=== PATIENT | female | born 1970 ===

== ENCOUNTER 2017-04-11 23:33 | Inpatient (IN) | payer SELFPAY ==
[2017-04-12] MEDS ORDERED: Sodium Chloride 0.9% 1,000 ML IV STA (00:18)
--- NOTE | 2017-04-12 00:29 | ED PDOC ---
HPI: Abdomen Time Seen by Provider: 04/12/17 00:00 Chief Complaint (Nursing): Abdominal Pain Chief Complaint (Provider): Abdominal Pain History Per: Patient History/Exam Limitations: no limitations Onset/Duration Of Symptoms: Hrs (x3 hours) Current Symptoms Are (Timing): Constant Pain Scale Rating Of: 9 Location Of Pain/Discomfort: RUQ Quality Of Discomfort: Sharp, Stabbing, "Pain" Associated Symptoms: denies: Fever, Nausea, Vomiting, Diarrhea Exacerbating Factors: Deep Breaths Additional Complaint(s): Joelle Rodriguez is a 46 year old female with no past medical history who presents to the ED with a chief complaint of abdominal pain onset x3 hours. Denies any fever, vomiting, diarrhea, cough or shortness of breath. Rates the pain 9/10 and describes it as a constant sharp and stabbing sensation. States feels worse with deep breaths. Of note patient reports the pain radiates to the back. Past Medical History Reviewed: Historical Data, Nursing Documentation, Vital Signs Vital Signs: Last Vital Signs Temp 100.4 F H 04/12/17 05:04 Pulse 109 H 04/12/17 05:04 Resp 18 04/12/17 05:04 BP 134/79 04/12/17 05:04 Pulse Ox 100 04/12/17 06:37 - Medical History PMH: No Chronic Diseases - Surgical History Surgical History: No Surg Hx - Family History Family History: States: Unknown Family Hx - Social History Current smoker - smoking cessation education provided: No Ex-Smoker (has not smoked in the last 12 months): No Alcohol: None Drugs: Denies - Home Medications Home Medications: Ambulatory Orders Medication Instructions Recorded No Known Home Med 04/12/17 - Allergies Allergies/Adverse Reactions: Allergies Allergy/AdvReac Type Severity Reaction Status Date / Time No Known Allergies Allergy Unverified 04/11/17 23:54 Review of Systems ROS Statement: Except As Marked, All Systems Reviewed And Found Negative Constitutional: Negative for: Fever Respiratory: Negative for: Cough, Shortness of Breath Gastrointestinal: Positive for: Abdominal Pain (Pain radiates to the back). Negative for: Nausea, Vomiting, Diarrhea Physical Exam - Reviewed Nursing Documentation Reviewed: Yes Vital Signs Reviewed: Yes - Physical Exam Appears: Positive for: Well, Non-toxic, Uncomfortable Head Exam: Positive for: ATRAUMATIC, NORMAL INSPECTION, NORMOCEPHALIC Skin: Positive for: Normal Color, Warm, Dry Eye Exam: Positive for: Normal appearance, EOMI, PERRL ENT: Positive for: Normal ENT Inspection Neck: Positive for: Normal, Painless ROM, Supple Cardiovascular/Chest: Positive for: Regular Rate, Rhythm. Negative for: Murmur , Tachycardia Respiratory: Positive for: Normal Breath Sounds. Negative for: Wheezing, Respiratory Distress Gastrointestinal/Abdominal: Positive for: Tenderness (RUQ epigastric tenderness) Back: Positive for: Normal Inspection Rectal: Positive for: Deferred Extremity: Positive for: Normal ROM Lymphatic: Positive for: Deferred Neurologic/Psych: Positive for: Alert, Oriented - Laboratory Results Result Diagrams: 04/12/17 00:49 04/12/17 00:49 - ECG O2 Sat by Pulse Oximetry: 100 (RA) Pulse Ox Interpretation: Normal - Critical Care Total Time (In Min): 60 Medical Decision Making Medical Decision Makin: Initial Impression: 46 year old female with acute abdominal pain Initial Plan: * Labs * CT * Zofran * Torodal * Re-Eval Labs significant for marked derangement of lipase level and liver function tests. Clinical presentation and lab are consistent with acute biliary pancreatitis. Patient referred to family practice for further admission. Dr Saucedo aware of admission Diagnosis: Biliary pancreatitis. Condition is fair. 02:30: Spoke to Dr. Potts regarding patient. Dr. Potts is aware and will consult on the case. 0540: CT EXAM: CT Abdomen and Pelvis With Intravenous Contrast CLINICAL HISTORY: 46 years old, female; Pain; Abdominal pain; Localized; Right upper quadrant (ruq ); Additional info: Ruq pain TECHNIQUE: Axial computed tomography images of the abdomen and pelvis with intravenous contrast. This CT exam was performed using one or more of the following dose reduction techniques : automated exposure control, adjustment of the mA and/or kV according to patient size, and/ or use of iterative reconstruction technique. Coronal and sagittal reformatted images were created and reviewed. CONTRAST: 90 mL of [id number] administered intravenously. COMPARISON: US - ABDOMEN LIMITED 01/07/2017 3:36:48 PM FINDINGS: Lower thorax: Right basilar consolidation. The remainder of the lung bases are clear. ABDOMEN: Liver: The left lobe of the liver is atretic. Marked dilatation of the intrahepatic biliary ducts, primarily within the atrophic left lobe is identified. Common bile duct dilatation is also noted, measuring 13 mm in greatest dimension. No obstructing calculus is identified. Gallbladder: The gallbladder is decompressed, and contains innumerable calcified stones. Pancreas: Enhances homogeneously. No ductal dilation. No discrete mass. Spleen: No acute findings. Adrenals: No acute findings. Kidneys and ureters: No acute findings. No hydronephrosis or renal calculi. No discrete solid mass. PELVIS: Bladder: No acute findings. Reproductive: Nodular contour of the uterus, suggesting uterine fibroids. Appendix: The air filled appendix is of normal caliber ABDOMEN and PELVIS: Stomach and bowel: A fat containing left inguinal hernia is identified. Colonic diverticulosis is identified, without inflammation. No obstruction. No mucosal thickening. Peritoneum: No significant fluid collection. No free air. Lymph nodes: No pathologically enlarged lymph nodes. Vasculature: Unremarkable. Bones: No acute fracture. IMPRESSION: Interval development of intra-and extrahepatic biliary ductal dilatation, predominantly involving the atrophic left lobe of the liver. Cholelithiasis. Fibroid uterus. Fat-containing left lumbar hernia. Diverticulosis, without inflammation. Scribe Attestation: Documented by Zack Crespo acting as a scribe for Antwan Sierra MD. Provider Scribe Attestation: All medical record entries made by the Scribe were at my direction and personally dictated by me. I have reviewed the chart and agree that the record accurately reflects my personal performance of the history, physical exam, medical decision making, and the department course for this patient. I have also personally directed, reviewed, and agree with the discharge instructions and disposition. Disposition - Clinical Impression Clinical Impression: Gallstone pancreatitis - Patient ED Disposition Is Patient to be Admitted: Yes - Disposition Disposition Time: 02:00 Condition: GUARDED
[2017-04-12 00:53] LABS: BASO % 0.1 % (0.0-2.0); EOS % 0.1 % (0.0-4.0); HEMOGLOBIN 13.1 g/dL (12.0-16.0); LYMPH # 0.3 K/uL (1.0-4.3); LYMPH % 3.4 % (20.0-40.0); MEAN CORPUSCULAR HEMOGLOBIN 30.9 pg (27.0-31.0); MEAN CORPUSCULAR HGB CONC 33.2 g/dL (33.0-37.0); MEAN PLATELET VOLUME 9.4 fl (7.2-11.7); MONO # 0.3 K/uL (0.0-0.8); MONO % 3.1 % (0.0-10.0); NEUT # 8.5 K/uL (1.8-7.0); NEUT % 93.3 % (50.0-75.0); NRBC % 0.1 % (0.0-0.0); PLATELET COUNT 198 K/uL (130-400); RBC 4.26 Mil/uL (3.80-5.20); RED CELL DISTRIBUTION WIDTH 13.1 % (11.5-14.5); WHITE BLOOD COUNT 9.1 K/uL (4.8-10.8)
[2017-04-12 01:00] LABS: ALB/GLOB RATIO 1.3 (1.0-2.1); ALBUMIN 4.4 g/dL (3.5-5.0); ALT/SGPT 619 U/L (9-52); AST/SGOT 375 U/L (14-36); BLOOD UREA NITROGEN 13 mg/dl (7-17); CALCIUM 9.3 mg/dL (8.4-10.2); GFR AFRICAN-AMERICAN > 60; GFR NON-AFRICAN AMERICAN > 60; LIPASE 1959 U/L (23-300)
[2017-04-12] MEDS ORDERED: Lactated Ringer's 1,000 ML IV SCH ×6 (01:15→09:00)
[2017-04-12 02:33] LABS: BANDS 3 % (0-2); LYMPHOCYTE 5 % (20-50); MONOCYTE 1 % (0-10); NEUTROPHIL 89 % (42-75); PLATELET ESTIMATE NORMAL (NORMAL); REACTIVE LYMPHOCYTES 2 % (0-0); TOTAL CELLS COUNTED 100
[2017-04-12] MEDS ORDERED: Sodium Chloride 0.9% 50 ML IV ONE (02:35)
[2017-04-12] MEDS ORDERED: Iohexol 300 100 ML IJ ONE (02:35)
[2017-04-12 02:38] LABS: ANISOCYTOSIS SLIGHT; HYPOCHROMIC SLIGHT
[2017-04-12] MEDS ORDERED: Piperacillin/Tazobact 3.375 GM in Sodium Chloride 0.9% 100 ML IV STA (02:47)
--- NOTE | 2017-04-12 03:16 | CP.PCM.HP ---
History of Present Illness - History of Present Illness History of Present Illness: 46 yo F w PMHx of fatty liver disease and HLD is admitted for c/o intractable abdominal pain. Pt states the pain began 6-7 days prior to hospital presentation and describes it as sharp/stabbing, 10/10, localized to her epigastric and RUQ regions, but does occasionally radiates toward her back. She has vomited twice during the day and once since presenting to the ER, all moments being mostly water with some food particles, but without obvious bleeding. Pt has continued to tolerate PO food and beverage during the week- long period, however, it has decreased in total amount. Her most recent meal was at 7pm, during which she had only chicken soup. She denies any fever/chills , hemoptysis, diarrhea, constipation, dysuria, melena, or hematochezia. Pt states last BM was this morning and it was of normal size, color, and consistency. Otherwise, she also denies chest pain, palpitations, SOB, dyspnea, cough, or other myalgias. PMD: Dr John PMHx: patient states none; eCW denotes Fatty Liver Disease, HLD, and spontaneous in Sep PSHx: None NKDA Home Meds: None LATHE TENDER: , LMP March 24 SHx: etoh, cigarettes, and illicit drugs FHx: Unremarkable except for brother w HTN : Blayne Raines [phone] ED Course: -CBC -CMP -Lipase -BCx -Upreg: negative -UA -NS 1L Bolus x1 -LR 1L Bolus x2 -Morphine 4mg IVP ONCE -Toradol 10mg IV ONCE -Zosyn 3.375mg IV ONCE -Zofran 4mg IV ONCE -CXR -CT A/P w IV Contrast -EKG Present on Admission - Present on Admission Any Indicators Present on Admission: No History of DVT/PE: No History of Uncontrolled Diabetes: No Urinary Catheter: No Decubitus Ulcer Present: No Review of Systems - Review of Systems All systems: reviewed and no additional remarkable complaints except (see HPI) Past Patient History - Past Social History Alcohol: None Drugs: Denies - PSYCHIATRIC Hx Substance Use: No Meds Allergies/Adverse Reactions: Allergies Allergy/AdvReac Type Severity Reaction Status Date / Time No Known Allergies Allergy Unverified 04/11/17 23:54 Physical Exam - Constitutional Appears: Non-toxic, In Acute Distress (severe abd pain) - Head Exam Head Exam: ATRAUMATIC, NORMOCEPHALIC - Eye Exam Eye Exam: EOMI Pupil Exam: PERRL - ENT Exam ENT Exam: Mucous Membranes Dry - Neck Exam Neck exam: Positive for: Full Rom. Negative for: Tenderness - Respiratory Exam Respiratory Exam: NORMAL BREATHING PATTERN. absent: Rhonchi, Wheezes, Respiratory Distress - Cardiovascular Exam Cardiovascular Exam: REGULAR RHYTHM. absent: Bradycardia - GI/Abdominal Exam GI & Abdominal Exam: Soft, Tenderness (very TTP in epigastric and RUQ regions). absent: Distended, Firm, Rebound - Extremities Exam Extremities exam: Negative for: calf tenderness, pedal edema - Back Exam Back exam: NORMAL INSPECTION. absent: CVA tenderness (L), CVA tenderness (R) - Neurological Exam Neurological exam: Alert, CN II-XII Intact, Oriented x3 - Psychiatric Exam Psychiatric exam: Normal Affect, Normal Mood - Skin Skin Exam: Dry, Intact, Normal Color, Warm Results - Vital Signs Recent Vital Signs: Last Vital Signs Temp 100.7 F H 04/11/17 23:54 Pulse 103 H 04/11/17 23:54 Resp 18 04/11/17 23:54 BP 132/50 L 04/11/17 23:54 Pulse Ox 100 04/12/17 02:17 - Labs Result Diagrams: 04/12/17 00:49 04/12/17 00:49 Assessment & Plan - Assessment and Plan (Free Text) Plan: 46 yo F w PMHx of fatty liver disease and HLD is admitted for c/o intractable abdominal pain 1) Intractable Abdominal Pain -Choledocholithiasis VS Biliary Pancreatitis -WBC: 9.1 -Fever 100.7F, resolved w Toradol [ED] -AST/ALT: 375/619 -ALP: 373 -Lipase: 1959 -CT A/P (04/12/17): Interval development of intra and extrahepatic biliary ductal dilation, predominantly involving the atrophic left lobe of the liver. ---Marked dilation of the intrahepatic ducts. Cholelithiasis. CBD dilation is also noted, measuring 13mm in greatest dimension. No obstructing calculus. Gallbladder is decompressed, and contains innumerable calcified stones. ---Pancreas enhances homogeneously. No ductal dilation. No discrete mass. ---Fibroid uterus. Fat-containing left lumbar hernia. Diverticulosis, without inflammation. -Abdominal U/S (Dec): Cholelithiasis. No sonographic evidence of acute cholecystitis. ---Fatty infiltration of liver manifests ultrasounographically as increased echogenicity of the liver parenchyma. No mass. ---No intrahepatic bile duct dilation. CBD measures 8.2mm. No evidence of calculus, mass, intrahepatic bile duct dilation. -Pepcid 20mg IVP Q12H -Morphine 2mg IVP Q4H PRN moderate -Morphine 4mg IVP Q4H PRN severe -Zofran 4mg IVP Q4H PRN nausea -NS 1L Bolus x1 [ED] -LR 1L Bolus x2 [ED] -LR @ 250mL/hr beginning after bolus infusion -NPO -f/u PT/INR/PTT -f/u Type & Screen -f/u Hep Panel -f/u Lipid Panel -f/u BCx -f/u GI Consult -f/u Surgical Consult -f/u Pain Control 2) Hypokalemia -Likely due to vomiting -KCl 10 mEq IVPB x2 -f/u BMP 3) DVT Prophylaxis -SCDs for now, given possibility of intervention
--- NOTE | 2017-04-12 03:36 | CT ---
EXAM: CT Abdomen and Pelvis With Intravenous Contrast CLINICAL HISTORY: 46 years old, female; Pain; Abdominal pain; Localized; Right upper quadrant (ruq); Additional info: Ruq pain TECHNIQUE: Axial computed tomography images of the abdomen and pelvis with intravenous contrast. This CT exam was performed using one or more of the following dose reduction techniques: automated exposure control, adjustment of the mA and/or kV according to patient size, and/or use of iterative reconstruction technique. Coronal and sagittal reformatted images were created and reviewed. CONTRAST: 90 mL of administered intravenously. COMPARISON: US - ABDOMEN LIMITED 01/07/2017 3:36:48 PM FINDINGS: Lower thorax: Right basilar consolidation. The remainder of the lung bases are clear. ABDOMEN: Liver: The left lobe of the liver is atretic. Marked dilatation of the intrahepatic biliary ducts, primarily within the atrophic left lobe is identified. Common bile duct dilatation is also noted, measuring 13 mm in greatest dimension. No obstructing calculus is identified. Gallbladder: The gallbladder is decompressed, and contains innumerable calcified stones. Pancreas: Enhances homogeneously. No ductal dilation. No discrete mass. Spleen: No acute findings. Adrenals: No acute findings. Kidneys and ureters: No acute findings. No hydronephrosis or renal calculi. No discrete solid mass. PELVIS: Bladder: No acute findings. Reproductive: Nodular contour of the uterus, suggesting uterine fibroids. Appendix: The air filled appendix is of normal caliber (series 3, image 101; series 601, image 50) . ABDOMEN and PELVIS: Stomach and bowel: A fat containing left inguinal hernia is identified. Colonic diverticulosis is identified, without inflammation. No obstruction. No mucosal thickening. Peritoneum: No significant fluid collection. No free air. Lymph nodes: No pathologically enlarged lymph nodes. Vasculature: Unremarkable. Bones: No acute fracture. IMPRESSION: Interval development of intra-and extrahepatic biliary ductal dilatation, predominantly involving the atrophic left lobe of the liver. Cholelithiasis. Fibroid uterus. Fat-containing left lumbar hernia. Diverticulosis, without inflammation.
[2017-04-12 03:59] LABS: SQUAMOUS EPITHIAL 6 /hpf (0-5); URINE AMORPHOUS SEDIMENT OCC /ul (<OCC); URINE BACTERIA RARE (<OCC); URINE BILIRUBIN NEGATIVE (NEGATIVE); URINE BLOOD NEGATIVE (NEGATIVE); URINE CLARITY TURBID (Clear); URINE COLOR YELLOW (YELLOW); URINE GLUCOSE (UA) NEG (Normal); URINE LEUKOCYTE ESTERASE NEG Leu/uL (Negative); URINE NITRATE NEGATIVE (NEGATIVE); URINE PROTEIN NEGATIVE (NEGATIVE)
[2017-04-12 04:16] LABS: PARTIAL THROMBOPLASTIN TIME 27.4 Seconds (25.6-37.1); PROTHROMBIN TIME 11.5 Seconds (9.8-13.1)
[2017-04-12] MEDS: Potassium CL 10mEq/100ml 100 ML IVPB SCH ×2 (07:07→08:31)
--- NOTE | 2017-04-12 09:22 | RAD ---
HISTORY: admit COMPARISON: None available. TECHNIQUE: Chest, one view. FINDINGS: LUNGS: The left costophrenic angle is incompletely imaged.No focal consolidation. Please note that chest x-ray has limited sensitivity for the detection of pulmonary masses. PLEURA: No significant pleural effusion identified. No definite pneumothorax . CARDIOVASCULAR: The cardiomediastinal silhouette appears within normal limits of size. OSSEOUS STRUCTURES: Mild degenerative changes. VISUALIZED UPPER ABDOMEN: Unremarkable. OTHER FINDINGS: None. IMPRESSION: No focal consolidation, significant pleural effusion, or definite pneumothorax identified.
[2017-04-12 10:40] LABS: HDL CHOLESTEROL 89 MG/DL (30-70)
[2017-04-12 10:50] LABS: LDL CHOLESTEROL 77 mg/dL (0-129)
--- NOTE | 2017-04-12 12:11 | CP.PCM.PN ---
Subjective - Date & Time of Evaluation Date of Evaluation: 04/12/17 Time of Evaluation: 09:00 - Subjective Subjective: Patient examined this morning, was laying in bed in no acute distress. Cash Applications Clerk #[id number] was used to speak with patient. Patient reported that abdominal pain has significantly improved, and that she has not had any more episodes of vomiting. Denies shortness of breath, chest pain, calf pain/ swelling. Patient stated that she was feeling more comfortable overall. Objective - Vital Signs/Intake and Output Vital Signs (last 24 hours): Temp Pulse Resp BP Pulse Ox 98.6 F 99 H 18 114/72 100 04/12/17 08:00 04/12/17 08:00 04/12/17 08:00 04/12/17 08:00 04/12/17 08:00 - Medications Medications: Current Medications Famotidine (Pepcid) 20 mg IVP Q12 [facility] Last Admin: 04/12/17 08:33 Dose: 20 mg Lactated Ringer's (Lactated Ringer's) 1,000 mls @ 1,000 mls/hr IV .Q1H [facility] Last Admin: 04/12/17 01:16 Dose: 1,000 mls/hr Lactated Ringer's (Lactated Ringer's) 1,000 mls @ 1,000 mls/hr IV .Q1H [facility] Last Admin: 04/12/17 01:16 Dose: 1,000 mls/hr Lactated Ringer's (Lactated Ringer's) 1,000 mls @ 250 mls/hr IV .Q4H [facility] Stop: 04/12/17 12:59 Last Admin: 04/12/17 08:30 Dose: 250 mls/hr Morphine Sulfate (Morphine) 2 mg IVP Q4 PRN PRN Reason: Pain, moderate (4-7) Morphine Sulfate (Morphine) 4 mg IVP Q4 PRN PRN Reason: Pain, severe (8-10) Ondansetron HCl (Zofran Inj) 4 mg IVP Q4 PRN PRN Reason: Nausea/Vomiting - Labs Labs: PT 11.5 Seconds (9.8-13.1) 04/12/17 03:54 INR 1.0 (0.9-1.2) 04/12/17 03:54 APTT 27.4 Seconds (25.6-37.1) 04/12/17 03:54 - Constitutional Appears: No Acute Distress - Eye Exam Eye Exam: Normal appearance - ENT Exam ENT Exam: Mucous Membranes Moist - Respiratory Exam Respiratory Exam: Clear to Ausculation Bilateral, NORMAL BREATHING PATTERN. absent: Rales, Rhonchi, Wheezes, Respiratory Distress - Cardiovascular Exam Cardiovascular Exam: REGULAR RHYTHM, +S1, +S2. absent: Clicks, Gallop, Rubs, Murmur - GI/Abdominal Exam GI & Abdominal Exam: Soft, Normal Bowel Sounds. absent: Guarding, Tenderness, Rebound - Extremities Exam Extremities Exam: absent: Calf Tenderness, Pedal Edema - Back Exam Back Exam: NORMAL INSPECTION. absent: CVA tenderness (L), CVA tenderness (R) Assessment and Plan - Assessment and Plan (Free Text) Assessment: 46 yo F with PMH of HLD, fatty liver, asymptomatic cholelithiasis presented to ED with acute, sharp abdominal pain in RUQ and epigastric area, radiating to the back. Pt was admitted due to acute pancreatitis, likely due to gallstones. Symptoms have been improving with IV hydration and pain control. Plan: 1) Acute Pancreatitis -Continue hydration with LR @ 250mL/hr; pt has received 3L fluid bolus since arrival to ED -D/c NPO; Start clear liquid diet -Monitor for recurrence of pain/symptoms -f/u CMP - on admissionn, Potassium 3.1, BUN 13, Total Bili 1.9, AST: 375, ALT: 619, ALP: 373 -f/u CBC- H/H on admission 13.1/39.6 -Continue Zofran 4mg IVP Q4 PRN -Continue Morphine 2mg IVP Q4 if pain moderate -Continue Morphine 4mg IVP Q4 if pain severe -Continue Pepcid 20mg IVP Q12 -Surgery consult received and appreciated: f/u with GI, MRCP, considering laparascopic cholecystectomy when acute pancreatitis resolved. 2) Cholelithiasis -CT A/P (04/12/17): CT showed cholelithiasis, decompressed gallbladder containing innumerable calcified stones. Intra and extrahepatic biliary ductal dilation noted. Common bile duct dilation also noted, measuring 13mm in greatest dimension. No obstructing calculus. Pancreas enhances homogenously. No ductal dilation. No discrete mass. -MRCP has been ordered, results pending. Considering laparascopic cholecystectomy next week, once pt is evaluated by GI and acute pancreatitis resolves. 3) Hypokalemia -pt received KCl 10mEq IVPB x2 -f/u CMP 4) DVT Prophylaxis -SCD
[2017-04-12 12:20] VITALS: BMI 26.5
--- NOTE | 2017-04-12 12:26 | CP.PCM.CON ---
History of Present Illness - History of Present Illness History of Present Illness: Surgery: Dr. Harris CC: abdominal pain HPI: Patient is a 46 y/o female who presents complaining of abdominal pain that started about 1 week ago. Patient states that the pain is in the middle of her stomach with radiation to RUQ and back. She describes the pain as sharp and unrelenting. She denies having pain like this in the past. She reports nausea and vomiting prior to admission but states since admission she has not had recurrent episodes. Overall since admission, patient states the symptoms have improved significantly. PMH: denies PSH: denies Social: , lives with family. Denies ETOH or tobacco abuse Review of Systems - Review of Systems All systems: reviewed and no additional remarkable complaints except Review of Systems: unless stated in HPI Past Patient History - Past Medical History & Family History Past Medical History?: No - Past Social History Alcohol: None Drugs: Denies - MUSCULOSKELETAL/RHEUMATOLOGICAL Hx Falls: No - PSYCHIATRIC Hx Substance Use: No - SURGICAL HISTORY Hx Surgeries: No - ANESTHESIA Hx Anesthesia Reactions: No (No surgical history) Meds Allergies/Adverse Reactions: Allergies Allergy/AdvReac Type Severity Reaction Status Date / Time No Known Allergies Allergy Unverified 04/11/17 23:54 - Medications Medications: Current Medications Famotidine (Pepcid) 20 mg IVP Q12 [facility] Last Admin: 04/12/17 08:33 Dose: 20 mg Lactated Ringer's (Lactated Ringer's) 1,000 mls @ 1,000 mls/hr IV .Q1H [facility] Last Admin: 04/12/17 01:16 Dose: 1,000 mls/hr Lactated Ringer's (Lactated Ringer's) 1,000 mls @ 1,000 mls/hr IV .Q1H [facility] Last Admin: 04/12/17 01:16 Dose: 1,000 mls/hr Lactated Ringer's (Lactated Ringer's) 1,000 mls @ 250 mls/hr IV .Q4H [facility] Stop: 04/12/17 12:59 Last Admin: 04/12/17 08:30 Dose: 250 mls/hr Morphine Sulfate (Morphine) 2 mg IVP Q4 PRN PRN Reason: Pain, moderate (4-7) Morphine Sulfate (Morphine) 4 mg IVP Q4 PRN PRN Reason: Pain, severe (8-10) Ondansetron HCl (Zofran Inj) 4 mg IVP Q4 PRN PRN Reason: Nausea/Vomiting Physical Exam - Constitutional Appears: Non-toxic, No Acute Distress - Head Exam Head Exam: ATRAUMATIC, NORMOCEPHALIC - Eye Exam Eye Exam: EOMI, Normal appearance - ENT Exam ENT Exam: Mucous Membranes Moist - Respiratory Exam Respiratory Exam: NORMAL BREATHING PATTERN. absent: Respiratory Distress - Cardiovascular Exam Cardiovascular Exam: REGULAR RHYTHM. absent: Tachycardia - GI/Abdominal Exam GI & Abdominal Exam: Soft. absent: Distended, Guarding, Rebound, Rigid, Tenderness - Extremities Exam Extremities exam: Positive for: normal inspection. Negative for: calf tenderness - Neurological Exam Neurological exam: Alert, Oriented x3 - Psychiatric Exam Psychiatric exam: Normal Affect, Normal Mood - Skin Skin Exam: Dry, Normal Color, Warm Results - Vital Signs Recent Vital Signs: Last Vital Signs Temp 98.6 F 04/12/17 08:00 Pulse 99 H 04/12/17 08:00 Resp 18 04/12/17 08:00 BP 114/72 04/12/17 08:00 Pulse Ox 100 04/12/17 08:00 - Labs Result Diagrams: 04/12/17 00:49 04/12/17 00:49 Labs: Laboratory Results - last 24 hr 04/12/17 04/12/17 04/12/17 03:54 09:00 09:00 PT 11.5 INR 1.0 APTT 27.4 Triglycerides 44 D Cholesterol 212 H LDL Cholesterol Direct 77 HDL Cholesterol 89 H Blood Type O POSITIVE Antibody Screen Negative BBK History Checked Patient has bt Assessment & Plan - Assessment and Plan (Free Text) Assessment: 46 y/o female w/ abdominal pain most likely 2/2 gallstone pancreatitis Plan: -f/u GI evaluation -ok for liquids from surgical standpoint -f/u MRCP -serial exams -IVF hydration -am labs -will plan for lap miya some time next week after acute pancreatitis resolves and GI evaluation, prior to d/c -d/w Dr. Steven Guerrier PGY3
[2017-04-12 13:54] LABS: BLOOD UREA NITROGEN 7 mg/dl (7-17); CALCIUM 8.8 mg/dL (8.4-10.2); GFR AFRICAN-AMERICAN > 60; GFR NON-AFRICAN AMERICAN > 60
--- NOTE | 2017-04-12 13:56 | CARD ---
APPROVED REPORT EKG Measurement Heart [id number] <Conclusion> Sinus tachycardia Nonspecific ST abnormality Abnormal ECG
[2017-04-12] MEDS: Lactated Ringer's 1,000 ML IV SCH (16:43)
[2017-04-12] MEDS ORDERED: Morphine 4 MG/ML VIAL IVP PRN (23:15)
[2017-04-12] MEDS: Morphine 4 MG/ML VIAL IVP PRN (23:16)
[2017-04-13] MEDS: Lactated Ringer's 1,000 ML IV SCH ×6 (01:38→23:22)
[2017-04-13] MEDS: Morphine 4 MG/ML VIAL IVP PRN (03:09)
[2017-04-13 08:19] LABS: HEMOGLOBIN 11.7 g/dL (12.0-16.0); MEAN CELL VOLUME 92.6 fl (81.0-99.0); MEAN CORPUSCULAR HEMOGLOBIN 31.1 pg (27.0-31.0); MEAN CORPUSCULAR HGB CONC 33.6 g/dL (33.0-37.0); RBC 3.75 Mil/uL (3.80-5.20); RED CELL DISTRIBUTION WIDTH 13.3 % (11.5-14.5); WHITE BLOOD COUNT 10.2 K/uL (4.8-10.8)
[2017-04-13 08:53] LABS: ALB/GLOB RATIO 1.1 (1.0-2.1); ALBUMIN 3.4 g/dL (3.5-5.0); ALT/SGPT 391 U/L (9-52); AST/SGOT 140 U/L (14-36); BLOOD UREA NITROGEN 6 mg/dl (7-17); GFR AFRICAN-AMERICAN > 60; GFR NON-AFRICAN AMERICAN > 60
--- NOTE | 2017-04-13 09:26 | CP.PCM.PN ---
Subjective - Date & Time of Evaluation Date of Evaluation: 04/13/17 Time of Evaluation: 09:24 - Subjective Subjective: Surgery: Dr. Banda Pt seen and examined. Had increased abd pain following CLD. No N/V. Objective - Vital Signs/Intake and Output Vital Signs (last 24 hours): Temp Pulse Resp BP Pulse Ox 98.6 F 85 18 103/68 97 04/13/17 07:29 04/13/17 07:29 04/13/17 07:29 04/13/17 07:29 04/13/17 07:29 - Medications Medications: Current Medications Famotidine (Pepcid) 20 mg IVP Q12 [facility] Last Admin: 04/13/17 09:02 Dose: 20 mg Lactated Ringer's (Lactated Ringer's) 1,000 mls @ 1,000 mls/hr IV .Q1H [facility] Last Admin: 04/12/17 01:16 Dose: 1,000 mls/hr Lactated Ringer's (Lactated Ringer's) 1,000 mls @ 1,000 mls/hr IV .Q1H [facility] Last Admin: 04/12/17 01:16 Dose: 1,000 mls/hr Lactated Ringer's (Lactated Ringer's) 1,000 mls @ 125 mls/hr IV .Q8H [facility] Last Admin: 04/13/17 09:03 Dose: 125 mls/hr Morphine Sulfate (Morphine) 2 mg IVP Q4 PRN PRN Reason: Pain, moderate (4-7) Morphine Sulfate (Morphine) 4 mg IVP Q4 PRN PRN Reason: Pain, severe (8-10) Last Admin: 04/13/17 03:09 Dose: 4 mg Ondansetron HCl (Zofran Inj) 4 mg IVP Q4 PRN PRN Reason: Nausea/Vomiting Last Admin: 04/13/17 03:12 Dose: 4 mg - Labs Labs: 04/13/17 05:30 04/13/17 05:30 PT 11.5 Seconds (9.8-13.1) 04/12/17 03:54 INR 1.0 (0.9-1.2) 04/12/17 03:54 APTT 27.4 Seconds (25.6-37.1) 04/12/17 03:54 - Constitutional Appears: Non-toxic, No Acute Distress - Head Exam Head Exam: ATRAUMATIC, NORMOCEPHALIC - Eye Exam Eye Exam: EOMI - ENT Exam ENT Exam: Mucous Membranes Moist - Neck Exam Neck Exam: Full ROM - Respiratory Exam Respiratory Exam: NORMAL BREATHING PATTERN. absent: Accessory Muscle Use, Respiratory Distress - GI/Abdominal Exam GI & Abdominal Exam: Soft, Tenderness (epigastric). absent: Distended, Firm, Guarding, Rigid, Rebound - Extremities Exam Extremities Exam: absent: Calf Tenderness, Pedal Edema - Neurological Exam Neurological Exam: Alert, Awake, Oriented x3 Assessment and Plan - Assessment and Plan (Free Text) Assessment: 46F w. gallstone pancreatitis -NPO -IVF -trend lipase -f/u MRCP -will need ERCP, f/u GI recommendations -c/w medical management -d/w attending Jayitis PGY3
--- NOTE | 2017-04-13 13:01 | CP.PCM.PN ---
Subjective - Date & Time of Evaluation Date of Evaluation: 04/13/17 Time of Evaluation: 09:15 - Subjective Subjective: Overnight, patient experienced an episode of severe 10/10 pain, nausea, and one episode of vomiting; was medicated with 4mg morphine as ordered, which resolved the symptoms. This morning, she was seen standing near her bed and then examined while sitting comfortably in bed, in no acute distress. She stated that symptoms have improved since last night. Denied shortness of breath, chest pain, calf pain/swelling. Objective - Vital Signs/Intake and Output Vital Signs (last 24 hours): Temp Pulse Resp BP Pulse Ox 98.6 F 85 18 103/68 97 04/13/17 07:29 04/13/17 07:29 04/13/17 07:29 04/13/17 07:29 04/13/17 07:29 - Medications Medications: Current Medications Famotidine (Pepcid) 20 mg IVP Q12 [facility] Last Admin: 04/13/17 09:02 Dose: 20 mg Lactated Ringer's (Lactated Ringer's) 1,000 mls @ 1,000 mls/hr IV .Q1H [facility] Last Admin: 04/12/17 01:16 Dose: 1,000 mls/hr Lactated Ringer's (Lactated Ringer's) 1,000 mls @ 1,000 mls/hr IV .Q1H [facility] Last Admin: 04/12/17 01:16 Dose: 1,000 mls/hr Lactated Ringer's (Lactated Ringer's) 1,000 mls @ 125 mls/hr IV .Q8H [facility] Last Admin: 04/13/17 09:03 Dose: 125 mls/hr Morphine Sulfate (Morphine) 2 mg IVP Q4 PRN PRN Reason: Pain, moderate (4-7) Morphine Sulfate (Morphine) 4 mg IVP Q4 PRN PRN Reason: Pain, severe (8-10) Last Admin: 04/13/17 03:09 Dose: 4 mg Ondansetron HCl (Zofran Inj) 4 mg IVP Q4 PRN PRN Reason: Nausea/Vomiting Last Admin: 04/13/17 03:12 Dose: 4 mg - Labs Labs: 04/13/17 05:30 04/13/17 05:30 PT 11.5 Seconds (9.8-13.1) 04/12/17 03:54 INR 1.0 (0.9-1.2) 04/12/17 03:54 APTT 27.4 Seconds (25.6-37.1) 04/12/17 03:54 - Constitutional Appears: No Acute Distress - Eye Exam Eye Exam: EOMI, Normal appearance - ENT Exam ENT Exam: Mucous Membranes Moist - Respiratory Exam Respiratory Exam: Clear to Ausculation Bilateral, NORMAL BREATHING PATTERN. absent: Rales, Rhonchi, Wheezes, Respiratory Distress, Stridor - Cardiovascular Exam Cardiovascular Exam: REGULAR RHYTHM, +S1, +S2. absent: Gallop, Rubs, Murmur - GI/Abdominal Exam GI & Abdominal Exam: Soft, Normal Bowel Sounds. absent: Guarding, Mass, Rebound - Extremities Exam Extremities Exam: Normal Inspection. absent: Calf Tenderness, Pedal Edema - Back Exam Back Exam: NORMAL INSPECTION. absent: CVA tenderness (L), CVA tenderness (R) - Neurological Exam Neurological Exam: Alert, Awake, CN II-XII Intact, Normal Gait - Skin Skin Exam: Normal Color, Warm Assessment and Plan - Assessment and Plan (Free Text) Assessment: 46 yo F with PMH HLD, fatty liver, asymptomatic cholelithiasis who presented to ED two days ago with acute, sharp abdominal pain in the RUQ and epigastric area , radiating to the back. She was admitted due to acute pancreatitis (likely due to gallstones), made NPO, given IV hydration, and pain was controlled. Symptoms improved with IV hydration, but patient did not completely tolerate advancement of diet to clear fluid. Plan: 1) Acute Pancreatitis -Continue hydration with LR 125 mL/hr -NPO -Monitor for recurrence of pain/symptoms -f/u GI consult - T.Bili trending up from 1.9 on admission to 4.1 today -LFTs trending down (AST 375 on admission to 140 today, ALT 619 on admission to 391 today, ALP 373 on admission to 306 today) -f/u CMP -Continue Zofran 4mg IVP Q4 PRN -Continue Morphine 2mg IVP Q4 if pain moderate -Continue Morphine 4mg IVP Q4 if pain severe -Continue Pepcid 20mg IVP Q12 -Surgery: saw patient today, ordered lipase to trend, f/u with GI 2) Cholelithiasis -CT A/P on 04/12/17 showed cholelithiasis, decompressed gallbladder with innumerable calcified stones, intra and extrahepatic biliary ductal dilation, CBD dilation. No obstructing calculus. -MRCP ordered by surgery, results pending -pending GI eval, surgery considering laparascopic cholecystectomy after acute pancreatitis resolves 3) Hypokalemia -likely due to vomiting prior to admission -resolved, potassium today 3.6 4) DVT prophylaxis -SCD
[2017-04-14] MEDS: Lactated Ringer's 1,000 ML IV SCH ×3 (02:20→15:00)
[2017-04-14 06:36] LABS: HEMOGLOBIN 11.2 g/dL (12.0-16.0); MEAN CELL VOLUME 92.9 fl (81.0-99.0); MEAN CORPUSCULAR HEMOGLOBIN 31.5 pg (27.0-31.0); MEAN CORPUSCULAR HGB CONC 33.9 g/dL (33.0-37.0); RBC 3.57 Mil/uL (3.80-5.20); RED CELL DISTRIBUTION WIDTH 13.3 % (11.5-14.5); WHITE BLOOD COUNT 5.4 K/uL (4.8-10.8)
[2017-04-14 06:50] LABS: ALB/GLOB RATIO 1.1 (1.0-2.1); ALBUMIN 3.2 g/dL (3.5-5.0); ALT/SGPT 330 U/L (9-52); AST/SGOT 117 U/L (14-36); BLOOD UREA NITROGEN 4 mg/dl (7-17); CALCIUM 9.1 mg/dL (8.4-10.2); GFR AFRICAN-AMERICAN > 60; GFR NON-AFRICAN AMERICAN > 60; LIPASE 334 U/L (23-300)
[2017-04-14 08:08] LABS: HEPATITIS B SURFACE AG NEGATIVE (NEGATIVE)
[2017-04-14 08:13] LABS: HEPATITIS A IGM NEGATIVE (NEGATIVE); HEPATITIS B CORE AB NEGATIVE (NEGATIVE)
[2017-04-14 08:25] LABS: HEPATITIS C ANTIBODY NEGATIVE (NEGATIVE)
--- NOTE | 2017-04-14 08:30 | CP.PCM.PN ---
Subjective - Date & Time of Evaluation Date of Evaluation: 04/14/17 Time of Evaluation: 08:25 - Subjective Subjective: Surgery Progress note. Dr. Banda Pt seen and examined at bedside. No acute events overnight. Patient denies any new complaints. Denies any N/V/D. No Abdominal pain. No F/C. Objective - Vital Signs/Intake and Output Vital Signs (last 24 hours): Temp Pulse Resp BP Pulse Ox 98.2 F 63 19 109/64 99 04/14/17 01:00 04/14/17 01:00 04/14/17 01:00 04/14/17 01:00 04/14/17 01:00 - Medications Medications: Current Medications Famotidine (Pepcid) 20 mg IVP Q12 [facility] Last Admin: 04/13/17 20:43 Dose: 20 mg Lactated Ringer's (Lactated Ringer's) 1,000 mls @ 250 mls/hr IV .Q4H [facility] Last Admin: 04/14/17 06:24 Dose: 250 mls/hr Morphine Sulfate (Morphine) 2 mg IVP Q4 PRN PRN Reason: Pain, moderate (4-7) Morphine Sulfate (Morphine) 4 mg IVP Q4 PRN PRN Reason: Pain, severe (8-10) Last Admin: 04/13/17 03:09 Dose: 4 mg Ondansetron HCl (Zofran Inj) 4 mg IVP Q4 PRN PRN Reason: Nausea/Vomiting Last Admin: 04/13/17 03:12 Dose: 4 mg - Labs Labs: 04/14/17 06:26 04/14/17 06:26 PT 11.5 Seconds (9.8-13.1) 04/12/17 03:54 INR 1.0 (0.9-1.2) 04/12/17 03:54 APTT 27.4 Seconds (25.6-37.1) 04/12/17 03:54 - Constitutional Appears: Well, No Acute Distress - Head Exam Head Exam: ATRAUMATIC, NORMAL INSPECTION, NORMOCEPHALIC - Eye Exam Eye Exam: EOMI - ENT Exam ENT Exam: Mucous Membranes Moist - Respiratory Exam Respiratory Exam: NORMAL BREATHING PATTERN - GI/Abdominal Exam GI & Abdominal Exam: Soft. absent: Distended, Firm, Guarding, Rigid, Tenderness - Extremities Exam Extremities Exam: Normal Inspection. absent: Calf Tenderness - Neurological Exam Neurological Exam: Alert, Awake, Oriented x3 - Psychiatric Exam Psychiatric exam: Normal Affect, Normal Mood - Skin Skin Exam: Dry, Intact, Normal Color, Warm Assessment and Plan - Assessment and Plan (Free Text) Assessment: 46F w. gallstone pancreatitis - Transaminitits improved - NPO - IVF - trend LFTs - f/u MRCP - f/u GI workup Further recs as per Dr. Solo Hogan PGY1 surgery pager: [phone]
--- NOTE | 2017-04-14 09:33 | CP.PCM.PN ---
Subjective - Date & Time of Evaluation Date of Evaluation: 04/14/17 Time of Evaluation: 07:15 - Subjective Subjective: Patient was seen lying comfortably in bed and was examined at bedside. She denied pain/discomfort overnight, nausea, vomiting. Stated that she is passing gas and urinating without difficulty, is ambulating around the room and floor easily. Denied shortness of breath, chest pain, calf/leg pain/swelling. Objective - Vital Signs/Intake and Output Vital Signs (last 24 hours): Temp Pulse Resp BP Pulse Ox 98.1 F 55 L 20 130/81 95 04/14/17 08:46 04/14/17 08:46 04/14/17 08:46 04/14/17 08:46 04/14/17 08:46 - Medications Medications: Current Medications Famotidine (Pepcid) 20 mg IVP Q12 [facility] Last Admin: 04/13/17 20:43 Dose: 20 mg Lactated Ringer's (Lactated Ringer's) 1,000 mls @ 250 mls/hr IV .Q4H [facility] Last Admin: 04/14/17 06:24 Dose: 250 mls/hr Morphine Sulfate (Morphine) 2 mg IVP Q4 PRN PRN Reason: Pain, moderate (4-7) Morphine Sulfate (Morphine) 4 mg IVP Q4 PRN PRN Reason: Pain, severe (8-10) Last Admin: 04/13/17 03:09 Dose: 4 mg Ondansetron HCl (Zofran Inj) 4 mg IVP Q4 PRN PRN Reason: Nausea/Vomiting Last Admin: 04/13/17 03:12 Dose: 4 mg - Labs Labs: 04/14/17 06:26 04/14/17 06:26 PT 11.5 Seconds (9.8-13.1) 04/12/17 03:54 INR 1.0 (0.9-1.2) 04/12/17 03:54 APTT 27.4 Seconds (25.6-37.1) 04/12/17 03:54 - Constitutional Appears: Non-toxic, No Acute Distress - Head Exam Head Exam: ATRAUMATIC - Eye Exam Eye Exam: EOMI, Normal appearance - Neck Exam Neck Exam: Full ROM, Normal Inspection - Respiratory Exam Respiratory Exam: Clear to Ausculation Bilateral, NORMAL BREATHING PATTERN. absent: Rales, Rhonchi, Wheezes - Cardiovascular Exam Cardiovascular Exam: REGULAR RHYTHM, +S1, +S2. absent: Gallop, Rubs, Murmur - GI/Abdominal Exam GI & Abdominal Exam: Soft, Normal Bowel Sounds. absent: Distended, Guarding, Tenderness - Extremities Exam Extremities Exam: Full ROM, Normal Capillary Refill, Normal Inspection. absent : Calf Tenderness, Joint Swelling, Pedal Edema - Back Exam Back Exam: NORMAL INSPECTION - Neurological Exam Neurological Exam: Alert, Awake, CN II-XII Intact - Psychiatric Exam Psychiatric exam: Normal Mood - Skin Skin Exam: Dry, Intact, Normal Color, Warm Assessment and Plan - Assessment and Plan (Free Text) Assessment: 46 yo F with PMH HLD, fatty liver, asymptomatic cholelithiasis who presented to ED with acute, sharp abdominal pain in the RUQ and epigastric area, radiating to the back. She was admitted due to acute pancreatitis (likely due to gallstones), made NPO, given IV hydration, and pain was controlled. Symptoms improved with IV hydration and pain control. Plan: 1) Acute Pancreatitis -Continue hydration with LR 250 mL/hr -NPO -Monitor for recurrence of pain/symptoms -f/u GI consult; T Bili 1.9 on 04/12, 4.1 on 04/13, back down to 1.6 today -LFTs trending down (AST 375 on admission,140 yesterday, 117 today; ALT 619 on admission, 391 yesterday, 330 today; ALP 373 on admission, 306 yesterday, 279 today) -Negative for Hep A IgM Ab, Hep Bs Antigen, Hep B Core IgM Ab, Hep C Antibody -Lipase trending down (1956 on admission to 334 today) -f/u CMP -Continue Zofran 4mg IVP Q4 PRN -Continue Morphine 2mg IVP Q4 if pain moderate -Continue Morphine 4mg IVP Q4 if pain severe -Continue Pepcid 20mg IVP Q12 -Surgery consult appreciated 2) Cholelithiasis -CT A/P on 04/12/17 showed cholelithiasis, decompressed gallbladder with innumerable calcified stones, intra and extrahepatic biliary ductal dilation, CBD dilation. No obstructing calculus. -MRCP performed by GI today: Biliary tree: grossly dilated, common bile duct filled with numerous calculi extending into central intrahepatic biliary ducts varying in size from few mm to at least 15mm, liver otherwise unremarkable. Gallbladder: mildly distended with innumerable calculi. No pericholecystic fluid collections suggest acute cholecysitis and there is no gross mural thickening apparent. -ERCP performed today; pathology result pending -pending GI eval, surgery considering laparascopic cholecystectomy after acute pancreatitis resolves 3) Hypokalemia -resolved -likely due to vomiting prior to admission 4) DVT prophylaxis -SCD
[2017-04-14] MEDS ORDERED: Midazolam 2 MG/2 ML VIAL ONE (11:20)
[2017-04-14] MEDS ORDERED: Propofol 10 mg/ml Inj (20 ML) ONE (11:21)
[2017-04-14] MEDS ORDERED: Glucagon Recombinant 1 mg Inj ONE (11:41)
[2017-04-14] MEDS ORDERED: Iohexol 240 (50 ml) ONE (11:42)
--- NOTE | 2017-04-14 11:45 | MRI ---
PROCEDURE: Magnetic Resonance Cholangiopancreatography HISTORY: COMPARISON: None available. TECHNIQUE: Multiplanar, multisequence MR images of the abdomen were obtained, including heavily T2 weighted MRCP images of the biliary system. Rotating maximum intensity projection images of the biliary system were generated. Intravenous gadolinium was not administered. FINDINGS: MRCP: The NG the biliary tree is grossly dilated including at the central intrahepatic bile ducts with the common hepatic duct measuring 17 mm an with the common bile duct measuring at least 13-15 as mm from distal to proximal segments. Further, the common bile duct is filled with numerous calculi extending into the central intrahepatic biliary ducts varying in size from a few mm up to at least 15 mm. LIVER: Other than dilated central intrahepatic bile ducts, unenhanced signal intensity at the liver is otherwise unremarkable. GALLBLADDER: Mildly distended with numerous innumerable calculi. No pericholecystic fluid collections appreciate suggests acute cholecystitis and there is no gross mural thickening apparent. SPLEEN: Unremarkable. PANCREAS: Unremarkable. No significant pancreatic dilatation is appreciated this time. ADRENALS: Unremarkable. KIDNEYS: Unremarkable. AORTA: No aneurysm. ASCITES: None. OTHER FINDINGS: None. IMPRESSION: Extensive cholelithiasis and choledocholithiasis with innumerable calculi filling the common bile duct extending to the common hepatic duct. Dilatation interaction and intrahepatic biliary tree is identified as discussed above. No pericholecystic fluid collection or definite mural thickening appears involving the gallbladder at this time. Findings were discussed with Dr. Potts. 04/14/2017, 10:45 AM.
[2017-04-14] MEDS ORDERED: Ciprofloxacin 400mg/200ml D5W 400 MG/200 ML BAG IVPB ONE (12:20)
[2017-04-14] MEDS ORDERED: EPINEPHrine 1 mg/ml (1:1000) Inj ONE (12:23)
[2017-04-14] MEDS ORDERED: Lactated Ringer's 500 ML IV ONE (13:04)
[2017-04-14] MEDS ORDERED: Indomethacin 50 MG Suppository PR ONE (13:30)
[2017-04-14] MEDS ORDERED: Lactated Ringer's 1,000 ML IV SCH (20:14)
[2017-04-15 00:32] VITALS: O2SAT 98
[2017-04-15 07:05] LABS: ALB/GLOB RATIO 1.1 (1.0-2.1); ALBUMIN 3.8 g/dL (3.5-5.0); ALT/SGPT 335 U/L (9-52); AST/SGOT 105 U/L (14-36); BLOOD UREA NITROGEN 7 mg/dl (7-17); CALCIUM 9.3 mg/dL (8.4-10.2); GFR AFRICAN-AMERICAN > 60; GFR NON-AFRICAN AMERICAN > 60
[2017-04-15 07:43] VITALS: BP 120/72; PULSE 49; RESP 20; TEMP 97.4
--- NOTE | 2017-04-15 08:06 | CP.PCM.PN ---
Subjective - Date & Time of Evaluation Date of Evaluation: 04/15/17 Time of Evaluation: 07:00 - Subjective Subjective: GENERAL SURGERY PROGRESS NOTE FOR DR. ELLER Patient seen and examined at bedside. She had her ERCP yesterday. She is tolerating liquid diet and denies nausea or vomiting. She states that she is hungry and would like to go home. She denies abdominal pain. Objective - Vital Signs/Intake and Output Vital Signs (last 24 hours): Temp Pulse Resp BP Pulse Ox 97.4 F L 49 L 20 120/72 98 04/15/17 07:42 04/15/17 07:42 04/15/17 07:42 04/15/17 07:42 04/15/17 07:42 - Medications Medications: Current Medications Famotidine (Pepcid) 20 mg IVP Q12 [facility] Last Admin: 04/14/17 20:23 Dose: 20 mg Lactated Ringer's (Lactated Ringer's) 1,000 mls @ 150 mls/hr IV .Q6H40M [facility] Last Admin: 04/14/17 20:26 Dose: 150 mls/hr Morphine Sulfate (Morphine) 2 mg IVP Q4 PRN PRN Reason: Pain, moderate (4-7) Morphine Sulfate (Morphine) 4 mg IVP Q4 PRN PRN Reason: Pain, severe (8-10) Last Admin: 04/13/17 03:09 Dose: 4 mg Ondansetron HCl (Zofran Inj) 4 mg IVP Q4 PRN PRN Reason: Nausea/Vomiting Last Admin: 04/13/17 03:12 Dose: 4 mg - Labs Labs: 04/14/17 06:26 04/15/17 05:55 PT 11.5 Seconds (9.8-13.1) 04/12/17 03:54 INR 1.0 (0.9-1.2) 04/12/17 03:54 APTT 27.4 Seconds (25.6-37.1) 04/12/17 03:54 - Constitutional Appears: Non-toxic, No Acute Distress - Head Exam Head Exam: ATRAUMATIC, NORMAL INSPECTION - Eye Exam Eye Exam: EOMI - Respiratory Exam Respiratory Exam: NORMAL BREATHING PATTERN. absent: Respiratory Distress - Cardiovascular Exam Cardiovascular Exam: +S1, +S2 - GI/Abdominal Exam GI & Abdominal Exam: Soft. absent: Distended, Firm, Guarding, Rigid, Tenderness , Rebound - Neurological Exam Neurological Exam: Alert, Awake, Oriented x3 - Psychiatric Exam Psychiatric exam: Normal Affect, Normal Mood - Skin Skin Exam: Dry, Normal Color, Warm Assessment and Plan - Assessment and Plan (Free Text) Assessment: 46yo F with gallstone pancreatitis and choledocholithiasis s/p ERCP yesterday with sphincterotomy and stone removal - Afebrile - T bili returned to normal today, 1.3 - LFTs slightly decreased from yesterday - On liquid diet per GI - Non tender - Patient is clear for DC home from surgical standpoint - She should follow up in the surgical clinic to be scheduled for outpatient elective cholecystectomy - Discussed plan with Dr. Solo Salazar PGY-3
--- NOTE | 2017-04-15 11:13 | CP.PCM.PN ---
Subjective - Date & Time of Evaluation Date of Evaluation: 04/15/17 Time of Evaluation: 08:45 - Subjective Subjective: Patient was seen lying and then sitting comfortably in bed and was examined at bedside. After MRCP and ERCP with removal of stones yesterday, she was able to tolerate clear liquid diet last night, and full liquid diet this morning. She denied recurrence of abdominal symptoms, pain/discomfort overnight, nausea, vomiting. She is ambulating around the room and floor easily, and verbalized that she feels good and wants to go home. Denied shortness of breath, chest pain , calf/leg pain/swelling. . Objective - Vital Signs/Intake and Output Vital Signs (last 24 hours): Temp Pulse Resp BP Pulse Ox 97.4 F L 49 L 20 120/72 98 04/15/17 07:42 04/15/17 07:42 04/15/17 07:42 04/15/17 07:42 04/15/17 07:42 - Medications Medications: Current Medications Famotidine (Pepcid) 20 mg IVP Q12 [facility] Last Admin: 04/15/17 09:05 Dose: 20 mg Morphine Sulfate (Morphine) 2 mg IVP Q4 PRN PRN Reason: Pain, moderate (4-7) Morphine Sulfate (Morphine) 4 mg IVP Q4 PRN PRN Reason: Pain, severe (8-10) Last Admin: 04/13/17 03:09 Dose: 4 mg Ondansetron HCl (Zofran Inj) 4 mg IVP Q4 PRN PRN Reason: Nausea/Vomiting Last Admin: 04/13/17 03:12 Dose: 4 mg - Labs Labs: 04/14/17 06:26 04/15/17 05:55 PT 11.5 Seconds (9.8-13.1) 04/12/17 03:54 INR 1.0 (0.9-1.2) 04/12/17 03:54 APTT 27.4 Seconds (25.6-37.1) 04/12/17 03:54 - Constitutional Appears: Non-toxic, No Acute Distress - Head Exam Head Exam: ATRAUMATIC - Eye Exam Eye Exam: EOMI, Normal appearance. absent: Scleral icterus - ENT Exam ENT Exam: Mucous Membranes Moist - Neck Exam Neck Exam: Full ROM, Normal Inspection - Respiratory Exam Respiratory Exam: Clear to Ausculation Bilateral, NORMAL BREATHING PATTERN. absent: Rales, Rhonchi, Wheezes, Respiratory Distress - Cardiovascular Exam Cardiovascular Exam: REGULAR RHYTHM, +S1, +S2. absent: Rubs, Murmur - GI/Abdominal Exam GI & Abdominal Exam: Soft, Normal Bowel Sounds. absent: Distended, Tenderness, Rebound - Extremities Exam Extremities Exam: Full ROM, Normal Capillary Refill, Normal Inspection. absent : Calf Tenderness, Joint Swelling, Pedal Edema, Tenderness - Back Exam Back Exam: NORMAL INSPECTION - Neurological Exam Neurological Exam: Alert, Awake, CN II-XII Intact, Oriented x3 - Psychiatric Exam Psychiatric exam: Normal Mood - Skin Skin Exam: Dry, Intact, Normal Color, Warm Assessment and Plan - Assessment and Plan (Free Text) Assessment: 46 yo F with PMH HLD, fatty liver, asymptomatic choledocholithiasis who presented to ED with acute, sharp abdominal pain in the RUQ and epigastric area , radiating to the back, admitted due to gallstone pancreatitis, improved with NPO, IV hydration, pain control. S/p MRCP and ERCP yesterday with sphincterectomy and stone removal. Plan: 1) Acute Pancreatitis -Resolving -Advance diet -Monitor for recurrence of pain/symptoms -Elevated T. Bili resolved -LFTs continuing to trend down -Hep panel negative -Continue Zofran 4mg IVP Q4 PRN -Continue Morphine 2mg IVP Q4 if pain moderate -Continue Morphine 4mg IVP Q4 if pain severe -Continue Pepcid 20mg IVP Q12 -If can tolerate diet today, plan for d/c later today -f/u apt with Dr. John in [facility] 2) Cholelithiasis/Choledocholithiasis -CT A/P on 04/12/17 showed cholelithiasis, decompressed gallbladder with innumerable calcified stones, CBD ductal dilation, hepatic ductal dilation. -MRCP performed by GI 04/14/17, showed choledocholithiasis -ERCP performed by GI 04/14/17, sphincterotomy and stone removal from duct -f/u outpatient surgery clinic with Dr. Banda 3) Hypokalemia -resolved -likely due to vomiting prior to admission 4) DVT prophylaxis -SCD
--- NOTE | 2017-04-15 13:11 | CP.PCM.PN ---
Subjective - Date & Time of Evaluation Date of Evaluation: 04/15/17 Time of Evaluation: 13:00 - Subjective Subjective: doing well Objective - Vital Signs/Intake and Output Vital Signs (last 24 hours): Temp Pulse Resp BP Pulse Ox 97.4 F L 49 L 20 120/72 98 04/15/17 07:42 04/15/17 07:42 04/15/17 07:42 04/15/17 07:42 04/15/17 07:42 - Medications Medications: Current Medications Famotidine (Pepcid) 20 mg IVP Q12 [facility] Last Admin: 04/15/17 09:05 Dose: 20 mg Morphine Sulfate (Morphine) 2 mg IVP Q4 PRN PRN Reason: Pain, moderate (4-7) Morphine Sulfate (Morphine) 4 mg IVP Q4 PRN PRN Reason: Pain, severe (8-10) Last Admin: 04/13/17 03:09 Dose: 4 mg Ondansetron HCl (Zofran Inj) 4 mg IVP Q4 PRN PRN Reason: Nausea/Vomiting Last Admin: 04/13/17 03:12 Dose: 4 mg - Labs Labs: 04/14/17 06:26 04/15/17 05:55 PT 11.5 Seconds (9.8-13.1) 04/12/17 03:54 INR 1.0 (0.9-1.2) 04/12/17 03:54 APTT 27.4 Seconds (25.6-37.1) 04/12/17 03:54 - GI/Abdominal Exam GI & Abdominal Exam: Soft, Normal Bowel Sounds Assessment and Plan - Assessment and Plan (Free Text) Assessment: 46 yo female with gallstone pancreatitis s/p ercp, innumerable large stones removed lap miya when able
--- NOTE | 2017-04-15 14:25 | RAD ---
PROCEDURE: ERCP HISTORY: Dr felisa COMPARISON: None TECHNIQUE: Standard protocol for this study/examination. FINDINGS: Total fluoroscopic time (continuous mode) utilized during the procedure: 4 minutes 9 seconds. IMPRESSION: Less than 1 hr fluoroscopic time utilized during performance of the procedure.
--- NOTE | 2017-04-16 08:59 | CON ---
DATE: 04/13/2017 REQUESTING PHYSICIAN: *------* REASON FOR CONSULTATION: Abdominal pain, elevated LFTs and pancreatitis. HISTORY OF PRESENT ILLNESS: This is a very suzan 46-year-old female with history of *------*, hyperlipidemia sent in for abdominal pain and discomfort 5 weeks prior to the admission, at epigastric region with radiation to the right upper quadrant, on and off, lasting for 10-15 minutes, sometimes more than half an hour. No heartburn or reflux. The patient has not had this before. Currently lying in bed comfortably, in no apparent distress. PAST MEDICAL HISTORY: As above. PAST SURGICAL HISTORY: As above. MEDICATIONS: Reviewed. REVIEW OF SYSTEMS: Have been reviewed, negative apart from the HPI. PHYSICAL EXAMINATION VITAL SIGNS: In hospital was grossly unremarkable and within normal limits. GENERAL: A middle aged female lying in bed comfortably, in no apparent distress. HEENT: Head: Normocephalic, atraumatic. Eyes, pupils equal, reactive to light and accommodation, No conjunctival pallor. NECK: Supple. Normal range of motion. No lymphadenopathy appreciated. LUNGS: Coarse breath sounds. HEART: S1, S2, regular rate and rhythm. No murmurs appreciated. ABDOMEN: Soft, nontender. Some discomfort in the epigastric region. *------*. EXTREMITIES: *------*. SKIN: Warm and dry. NEUROLOGICAL: *------* x3. LABORATORY DATA: Labs have been reviewed. WBC is 10.2, hemoglobin 11, hematocrit 34.8. Total bilirubin was 1.9, 4.1. AST/ALT *------*. Alkaline phosphatase of 306. Lipase of almost 2000. Ultrasound showed dilated CBD and multiple gallstones in the gallbladder. ASSESSMENT: This is a 46-year-old female with gallstone, pancreatitis. From a GI standpoint, MRCP is ordered and pending. Pending those results aggressive IV hydration, surgery, and consultation. Thank you for the consult. Dakota Potts MD/ PhD cc: *------* [facility] # [id number]
--- NOTE | 2017-04-17 06:41 | CP.PCM.DIS ---
Provider - Provider Date of Admission: 04/12/17 01:03 Attending physician: Radha Betancur MD Primary care physician: Dr. Jonh Consults: Surgery GI Time Spent in preparation of Discharge (in minutes): 30 Diagnosis - Discharge Diagnosis (1) Cholelithiasis Status: Chronic Hospital Course - Lab Results Lab Results: Micro Results 04/12/17 09:30 Blood Blood Culture - Preliminary NO GROWTH AFTER 4 DAYS 04/12/17 09:00 Blood Blood Culture - Preliminary NO GROWTH AFTER 4 DAYS Most Recent Lab Values WBC 5.4 K/uL (4.8-10.8) 04/14/17 06:26 RBC 3.57 Mil/uL (3.80-5.20) L 04/14/17 06:26 Hgb 11.2 g/dL (12.0-16.0) L 04/14/17 06:26 Hct 33.2 % (34.0-47.0) L 04/14/17 06:26 MCV 92.9 fl (81.0-99.0) 04/14/17 06:26 MCH 31.5 pg (27.0-31.0) H 04/14/17 06:26 MCHC 33.9 g/dL (33.0-37.0) 04/14/17 06:26 RDW 13.3 % (11.5-14.5) 04/14/17 06:26 Plt Count 188 K/uL (130-400) 04/14/17 06:26 MPV 9.4 fl (7.2-11.7) 04/12/17 00:49 Neut % (Auto) 93.3 % (50.0-75.0) H 04/12/17 00:49 Lymph % (Auto) 3.4 % (20.0-40.0) L 04/12/17 00:49 [place] % (Auto) 3.1 % (0.0-10.0) 04/12/17 00:49 Eos % (Auto) 0.1 % (0.0-4.0) 04/12/17 00:49 Baso % (Auto) 0.1 % (0.0-2.0) 04/12/17 00:49 Neut # 8.5 K/uL (1.8-7.0) H 04/12/17 00:49 Lymph # 0.3 K/uL (1.0-4.3) L 04/12/17 00:49 [place] # 0.3 K/uL (0.0-0.8) 04/12/17 00:49 Eos # 0.0 K/uL (0.0-0.7) 04/12/17 00:49 Baso # 0.0 K/uL (0.0-0.2) 04/12/17 00:49 Neutrophils % (Manual) 89 % (42-75) H 04/12/17 00:49 Band Neutrophils % 3 % (0-2) H 04/12/17 00:49 Lymphocytes % (Manual) 5 % (20-50) L 04/12/17 00:49 Reactive Lymphs % 2 % (0-0) H 04/12/17 00:49 Monocytes % (Manual) 1 % (0-10) 04/12/17 00:49 Platelet Estimate Normal (NORMAL) 04/12/17 00:49 Hypochromasia (manual) Slight 04/12/17 00:49 Anisocytosis (manual) Slight 04/12/17 00:49 PT 11.5 Seconds (9.8-13.1) 04/12/17 03:54 INR 1.0 (0.9-1.2) 04/12/17 03:54 APTT 27.4 Seconds (25.6-37.1) 04/12/17 03:54 Sodium 140 mmol/l (132-148) 04/15/17 05:55 Potassium 3.5 MMOL/L (3.6-5.0) L 04/15/17 05:55 Chloride 104 mmol/L (98-107) 04/15/17 05:55 Carbon Dioxide 27 mmol/L (22-30) 04/15/17 05:55 Anion Gap 13 (10-20) 04/15/17 05:55 BUN 7 mg/dl (7-17) 04/15/17 05:55 Creatinine 0.7 mg/dL (0.7-1.2) 04/15/17 05:55 Est GFR ( Amer) > 60 04/15/17 05:55 Est GFR (Non-Af Amer) > 60 04/15/17 05:55 Random Glucose 84 mg/dL (65-105) 04/15/17 05:55 Calcium 9.3 mg/dL (8.4-10.2) 04/15/17 05:55 Total Bilirubin 1.3 mg/dl (0.2-1.3) 04/15/17 05:55 AST 105 U/L (14-36) H 04/15/17 05:55 ALT 335 U/L (9-52) H 04/15/17 05:55 Alkaline Phosphatase 303 U/L (38-126) H 04/15/17 05:55 Total Protein 7.1 G/DL (6.3-8.2) 04/15/17 05:55 Albumin 3.8 g/dL (3.5-5.0) 04/15/17 05:55 Globulin 3.4 gm/dL (2.2-3.9) 04/15/17 05:55 Albumin/Globulin Ratio 1.1 (1.0-2.1) 04/15/17 05:55 Triglycerides 44 mg/DL (0-149) D 04/12/17 09:00 Cholesterol 212 mg/dL (0-199) H 04/12/17 09:00 LDL Cholesterol Direct 77 mg/dL (0-129) 04/12/17 09:00 HDL Cholesterol 89 MG/DL (30-70) H 04/12/17 09:00 Lipase 334 U/L (23-300) H 04/14/17 06:26 Urine Color Yellow (YELLOW) 04/12/17 00:43 Urine Clarity Turbid (Clear) 04/12/17 00:43 Urine pH 7.0 (5.0-8.0) 04/12/17 00:43 Ur Specific [place] 1.020 (1.003-1.030) 04/12/17 00:43 Urine Protein Negative mg/dL (NEGATIVE) 04/12/17 00:43 Urine Glucose (UA) Neg mg/dL (Normal) 04/12/17 00:43 Urine Ketones Trace mg/dL (NEGATIVE) 04/12/17 00:43 Urine Blood Negative (NEGATIVE) 04/12/17 00:43 Urine Nitrate Negative (NEGATIVE) 04/12/17 00:43 Urine Bilirubin Negative (NEGATIVE) 04/12/17 00:43 Urine Urobilinogen 4.0 mg/dL (0.2-1.0) H 04/12/17 00:43 Ur Leukocyte Esterase Neg [place]/uL (Negative) 04/12/17 00:43 Urine RBC (Auto) 2 /hpf (0-3) 04/12/17 00:43 Ur Squamous Epith Cells 6 /hpf (0-5) H 04/12/17 00:43 Amorphous Sediment Occ /ul (<OCC) H 04/12/17 00:43 Urine Bacteria Rare (<OCC) 04/12/17 00:43 Hepatitis A IgM Ab Negative (NEGATIVE) 04/12/17 11:00 Hep Bs Antigen Negative (NEGATIVE) 04/12/17 11:00 Hep B Core IgM Ab Negative (NEGATIVE) 04/12/17 11:00 Hepatitis C Antibody Negative (NEGATIVE) 04/12/17 11:00 Blood Type O POSITIVE 04/12/17 09:00 Antibody Screen Negative 04/12/17 09:00 BBK History Checked Patient has bt 04/12/17 09:00 - Hospital Course Hospital Course: Patient presented to ED with sharp 10/10 RUQ abdominal pain radiating to the back, present for about 6 days, worsening for two days, made even worse after meal of cheese, milk, and rice. In the ED, pt got labs that showed elevated lipase, elevated LFTs, CT abdomen showed innumerable calcified stones in the gallbladder and dilation of CBD and intra and extra hepatic ducts, and pt was admitted due to most likely diagnosis of acute gallstone pancreatitis. Pt was made NPO, hydrated with LR, pain was controlled, surgery and GI consults were placed. Pt's symptoms improved with these interventions, LFTs trended down. MRCP done by GI showed multiple stones in common bile duct, ERCP done by GI was done to remove those stones. Pt's pain resolved and her diet was advanced to clear, then thick liquids, and she tolerated advancement of diet well and remained stable throughout the stay with continuously trending down LFTs. Surgery team recommended outpt follow up in surgical clinic for possible future cholecystectomy. Pt was d/c with appointments to see her PCP at [facility] and surgeon at surgery clinic. - Date & Time of H&P Date of H&P: 04/12/17 Time of H&P: 03:15 Discharge Exam - Head Exam Head Exam: ATRAUMATIC - Eye Exam Eye Exam: EOMI, Normal appearance - ENT Exam ENT Exam: Mucous Membranes Moist - Respiratory Exam Respiratory Exam: Clear to PA & Lateral, NORMAL BREATHING PATTERN, UNREMARKABLE - Cardiovascular Exam Cardiovascular Exam: REGULAR RHYTHM, +S1, +S2 - GI/Abdominal Exam GI & Abdominal Exam: Normal Bowel Sounds, Soft, Unremarkable. absent: Distended , Firm, Guarding, Rebound, Tenderness - Extremities Exam Extremities exam: normal capillary refill, normal inspection, pedal pulses present - Back Exam Back exam: NORMAL INSPECTION. absent: CVA tenderness (L), CVA tenderness (R) - Neurological Exam Neurological exam: Alert, CN II-XII Intact, Normal Gait, Oriented x3 - Psychiatric Exam Psychiatric exam: Normal Mood - Skin Skin Exam: Dry, Intact, Normal Color, Warm Discharge Plan - Follow Up Plan Condition: GUARDED Disposition: HOME/ ROUTINE Instructions: Pancreatitis (DC), Gallstones (DC), ERCP (Endoscopic Retrograde Cholangiopancreatography) (DC), Acute Abdominal Pain (DC), Magnetic Resonance Cholangiopancreatography (DC) Additional Instructions: Pt advised to follow up with her PCP in 1-2 week; appointment scheduled for April 29 at 9am Pt also advised to follow up with surgery clinic with Dr. Banda appt scheduled 04/21/17 @10am avoid fatty meals , eat small portion meals use ibuprofen 600mg for pain PRN drink lots of fluid Referrals: Caryl Banda MD [Staff Provider] -
== END 2017-04-15 16:41 | disposition home or self-care (01) | DRG 207 ==
LOC: H.ER 23:33 → H.ERHOLD 04-12 01:03 → H.TEL 04-12 05:24 → H.MEDSURG1 04-12 17:22
PROVIDERS: ADMIT Family Medicine Geriatric Medicine; ATTEND Family Medicine Geriatric Medicine
PROC: 0FCD8ZZ Extirpation of Matter from Pancreatic Duct, Via Natural or Artificial Opening Endoscopic (ICD-10-PCS; principal; 2017-04-14 14:30)
DX: K80.70 Calculus of gallbladder and bile duct without cholecystitis without obstruction (principal); K85.10 Biliary acute pancreatitis without necrosis or infection; K76.0 Fatty (change of) liver, not elsewhere classified; D25.9 Leiomyoma of uterus, unspecified; E78.5 Hyperlipidemia, unspecified; K45.8 Other specified abdominal hernia without obstruction or gangrene; K57.90 Diverticulosis of intestine, part unspecified, without perforation or abscess without bleeding